=== PATIENT | male | born 1980 | race Two or more races ===

== ENCOUNTER 2024-03-17 19:29 | Emergency (ER) | payer MEDICAID ==
[~2024-03-17] VITALS: Ht 177.8 cm; Wt 74.0 kg
[2024-03-17 20:31] VITALS: BP 124/87; PULSE 77; RESP 18; TEMP 98.2; O2SAT 98
== END 2024-03-17 20:32 ==
LOC: ER 19:30
DX: M94.0 Chondrocostal junction syndrome [Tietze] (principal); F10.129 Alcohol abuse with intoxication, unspecified; V89.2XXA Person injured in unspecified motor-vehicle accident, traffic, initial encounter; Y93.89 Activity, other specified; Y92.89 Other specified places as the place of occurrence of the external cause; Y99.8 Other external cause status; Y90.9 Presence of alcohol in blood, level not specified
CPT/HCPCS: 99283